=== PATIENT | male | born 1950 | race Caucasian/White ===

== ENCOUNTER 2019-06-13 20:18 | Inpatient (IN) | payer OTHER ==
[~2019-06-13] VITALS: Ht 182.9 cm; Wt 80.7 kg
[~2019-06-13 20:18] MED LIST: AMLO10TA8 PO; ATRO2DRO3 SL; BACL20TA PO; INSU100I32 SQ; INSU100I39 SQ; LORA2ORA7 SL; LORA2VIA IVP; LOSA1TAB25 PO; MELO15TA23 PO; METF10007 PO; MORP100S3 SL; MORP4CAR IV; OXYC1TAB15 PO; POTA10TA12 PO; SCOP1PAT11 TD
[2019-06-13] MEDS ORDERED: ATROPINE 1% OPHTH SOLUTION 5ML BOTTLE. SL PRN (22:30)
[2019-06-13] MEDS ORDERED: MORPHINE SULFATE 20 MG/ML CONC SOLUTION. SL PRN (22:30)
[2019-06-13] MEDS ORDERED: MORPHINE SULFATE 2 MG/ML VIAL. IV PRN (22:30)
[2019-06-13 22:37] VITALS: BP 128/85
[2019-06-13] MEDS ORDERED: BISACODYL 10 MG SUPP.RECT. PR PRN (22:45)
[2019-06-13] MEDS ORDERED: ACETAMINOPHEN 650 MG SUPP.RECT. PR PRN (22:45)
[2019-06-14 05:10] VITALS: BP 128/77
[2019-06-14 07:59] VITALS: BP 110/71
[2019-06-14] MEDS ORDERED: IV NORMAL SALINE 1000ML BAG 1,000 ML IV SCH (09:13)
[2019-06-14] MEDS ORDERED: MORPHINE SULFATE/PF 30 ML IV PRN ×2 (09:15→10:45)
[2019-06-14] MEDS ORDERED: NALOXONE 0.4 MG/ML VIAL. IV PRN (09:15)
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
[2019-06-14 19:36] VITALS: BP 121/70
[2019-06-16] MEDS ORDERED: SCOPOLAMINE 1.5MG PATCH. TD SCH (09:00)
== END 2019-06-15 01:25 | disposition expired | DRG 871 ==
LOC: 4 NORTH 20:18
PROVIDERS: ADMIT Internal Medicine; ATTEND Internal Medicine
DX: A41.9 Sepsis, unspecified organism (principal); D65 Disseminated intravascular coagulation [defibrination syndrome]; I21.4 Non-ST elevation (NSTEMI) myocardial infarction; J96.01 Acute respiratory failure with hypoxia; K72.00 Acute and subacute hepatic failure without coma; N17.0 Acute kidney failure with tubular necrosis; J18.9 Pneumonia, unspecified organism; N39.0 Urinary tract infection, site not specified; B96.1 Klebsiella pneumoniae [K. pneumoniae] as the cause of diseases classified elsewhere; E11.649 Type 2 diabetes mellitus with hypoglycemia without coma; I10 Essential (primary) hypertension; R65.20 Severe sepsis without septic shock; Z51.5 Encounter for palliative care; Z79.891 Long term (current) use of opiate analgesic; G89.29 Other chronic pain; G62.9 Polyneuropathy, unspecified
CPT/HCPCS: 82962; J2270; J7030; G0378